=== PATIENT | male | born 1950 | race Caucasian/White ===

== ENCOUNTER → 2017-06-17 | Outpatient (CLI) | payer MEDICARE, MEDICAID ==
[~2017-06-17] MED LIST: INSU100C11 SQ; INSU100C6 SQ; LEVO500T2 PO; [UNRECOGNIZED DRUG - CODE] MC; [UNRECOGNIZED DRUG - CODE] MC
== END | disposition home or self-care (01) ==
LOC: RAD 11:05
PROVIDERS: ATTEND Internal Medicine Nephrology
DX: M25.512 Pain in left shoulder (principal); M25.562 Pain in left knee
CPT/HCPCS: 73030; 73560